=== PATIENT | male | born 1980 | race African-American/Black ===

== ENCOUNTER 2017-03-21 15:17 | Emergency (ER) | payer BC ==
[~2017-03-21] VITALS: Ht 185.4 cm; Wt 103.8 kg
[2017-03-21 18:49] LABS: HEMATOCRIT 42.3 % (38.0-50.0); MCH 26.1 PG (29.0-34.0); MCHC 32.4 G/DL (30.0-36.0); MCV 80.7 FL (86-99); MEAN PLAT.VOLUME 10.4 uM^3 (9.0-12.4); PLATELET COUNT 217 K/uL (156-360); RBC DIS.WIDTH-CV 14.2 % (11.8-14.6); RBC DIS.WIDTH-SD 41.7 % (39-53); RED BLOOD COUNT 5.24 M/uL (4.00-5.50); WHITE BLOOD COUNT 9.7 K/uL (4.1-10.2)
[2017-03-21 18:55] LABS: CHLORIDE 103 mEq/L (99-109); POTASSIUM 3.3 mEq/L (3.7-5.4); SODIUM 138 mEq/L (136-147)
[2017-03-21 18:57] LABS: GLUCOSE 95 mg/dL (70-99)
[2017-03-21 18:58] LABS: ANION GAP 8 MEQ/L (2-14); INTER. NORMALIZED RATIO 1.2
[2017-03-21 18:59] LABS: TOTAL BILIRUBIN 0.7 mg/dL (0.0-1.0)
[2017-03-21 19:00] LABS: ALKALINE PHOSPHATASE 95 IU/L (3-129)
[2017-03-21 19:01] LABS: GFR ESTIMATE (CALCULATED) > 59 mL/min/
[2017-03-21 19:02] LABS: UREA NITROGEN (BUN) 15 mg/dL (9-23)
[2017-03-21 19:04] LABS: CREATINE KINASE 377 IU/L (1-294)
[2017-03-21 19:28] LABS: C-REACTIVE PROTEIN 96.7 MG/L (0-10)
[2017-03-21 19:31] LABS: ERTH.SED.RATE 21 MM/HR (0-15)
[2017-03-21 21:02] LABS: ADD MIUA? YES; BILIRUBIN NEGATIVE; BLOOD SMALL; COLOR YELLOW ((YELLOW)); GLUCOSE (STRIP) NEGATIVE; KETONES NEGATIVE; LEUKOCYTES NEGATIVE; NITRITE NEGATIVE; PROTEIN (STRIP) NEGATIVE; SPECIFIC GRAVITY 1.019 (1.000-1.030)
[2017-03-21 21:28] LABS: BACTERIA RARE /HPF; EPITHELIAL CELLS RARE /HPF; MUCUS TRACE /LPF; UCUL ADDED? NO; WHITE BLOOD CELLS 0-5 /HPF (0-5)
[2017-03-21] MEDS ORDERED: NAPROSYN500 MG PO (22:07)
[2017-03-21 22:22] VITALS: BP 118/69
== END 2017-03-21 22:30 | disposition home or self-care (01) ==
LOC: EME 15:17
PROVIDERS: Physician Assistant
DX: M79.1 Myalgia (principal)
CPT/HCPCS: 80053; 81003; 82550; 85027; 85610; 85651; 85730; 86140; 87040; 99281; 99285; J1100; J1885; J7030